=== PATIENT | female | born 1990 | race American Indian/Alaskan Native ===

== ENCOUNTER 2018-06-13 17:21 | Emergency (ER) | payer BC, OTHER ==
--- NOTE | 2018-06-13 18:18 | Emergency Department Report ---
Chief Complaint: Abdominal Pain Stated Complaint: ABD PAIN/NAUSEA Time Seen by Provider: 06/13/18 18:16 - HPI History of Present Illness: Pt presents with RLQ abdominal pain that began a week ago states she has nausea no emesis no fever (+) diarrhea (+) urinary frequency no dysuria PSHx cholecystectomy in Dec 2017 hx asthma, albuterol inhaler (+) smoker non drink no drug use MSE screening note: Focused history performed. Due to findings the following was ordered: UA, labs, urine preg ED Disposition for MSE Condition: Stable Instructions: Abdominal Pain (ED)
[2018-06-13 18:52] LABS: Basophils % (Auto) 0.5 % (0.0-1.8); Eosinophils # (Auto) 0.2 K/mm3 (0.0-0.4); Hematocrit 43.1 % (30.3-42.9); Hemoglobin 14.3 gm/dl (10.1-14.3); Lymphocytes # (Auto) 3.4 K/mm3 (1.2-5.4); Lymphocytes % (Auto) 36.1 % (13.4-35.0); Mean Corpuscular HGB Conc 33 % (30-34); Mean Corpuscular Volume 78 fl (79-97); Monocytes # (Auto) 0.7 K/mm3 (0.0-0.8); Monocytes % (Auto) 7.4 % (0.0-7.3); Platelet Count 265 K/mm3 (140-440); Red Blood Count 5.52 M/mm3 (3.65-5.03); Red Cell Distribution Width 14.1 % (13.2-15.2)
[2018-06-13 19:07] LABS: Alanine Aminotransferase 12 units/L (7-56); BUN/Creatinine Ratio 12; Blood Urea Nitrogen 7 mg/dL (7-17); Calcium 9.2 mg/dL (8.4-10.2); Hemolysis Index 18
[2018-06-13 20:10] LABS: Bilirubin,Urine NEG (Negative); Blood,Urine NEG (Negative); Color,Urine Yellow (Yellow); Mucus,Urine FEW /HPF; Protein,Urine <15 mg/dL mg/dL (Negative)
[2018-06-13 20:13] LABS: HCG Qualitative,Urine Negative (Negative); WBC,Urine < 1.0 /HPF (0.0-6.0)
[2018-06-13] MEDS ORDERED: NACL 0.9% 1000 ML 1,000 ML IV ONE (20:14)
--- NOTE | 2018-06-13 20:26 | Emergency Department Report ---
ED Abdominal Pain HPI - General Chief Complaint: Abdominal Pain Stated Complaint: ABD PAIN/NAUSEA Time Seen by Provider: 06/13/18 18:16 Source: patient Mode of arrival: Ambulatory Limitations: No Limitations - History of Present Illness Initial Comments: 28-year-old -[place] female presents to the emergency room for right lower quadrant pain after eating. Nausea no vomiting diarrhea. MD Complaint: abdominal pain -: week(s) (1) Location: RLQ Severity scale (0 -10): 9 Quality: sharp Consistency: intermittent Improves With: nothing Worsens With: nothing Associated Symptoms: nausea, diarrhea. denies: vomiting - Related Data LMP Date: 05/04/18 ED Review of Systems ROS: Stated complaint: ABD PAIN/NAUSEA Other details as noted in HPI Comment: All other systems reviewed and negative Gastrointestinal: abdominal pain, nausea ED Past Medical Hx - Surgical History Hx Appendectomy: Yes Additional Surgical History: x2 - Social History Smoking Status: Current Every Day Smoker Substance Use Type: None ED Physical Exam - General Limitations: No Limitations ED Course Vital Signs 06/13/18 18:16 Temperature 98.4 F Pulse Rate 74 Respiratory 18 Rate Blood Pressure 117/68 O2 Sat by Pulse 99 Oximetry ED Medical Decision Making - Lab Data Result diagrams: 06/13/18 18:38 06/13/18 18:38 Critical care attestation.: If time is entered above; I have spent that time in minutes in the direct care of this critically ill patient, excluding procedure time. ED Disposition Clinical Impression: Abdominal pain Disposition: DC-07 LEFT AGAINST MED ADVICE Is pt being admited?: No Does the pt Need Aspirin: No Condition: Stable Instructions: Abdominal Pain (ED) Referrals: AVA LEAL MD [Primary Care Provider] - 3-5 Days Forms: AMA Form
[2018-06-13] MEDS ORDERED: ZOFRAN ODT PO ONE (20:44)
--- NOTE | 2018-06-13 22:18 | Ultrasound Report ---
PROCEDURE: US ABDOMEN LIMITED TECHNIQUE: Ultrasound abdomen right lower quadrant HISTORY: rlq pain COMPARISONS: FINDINGS: Sonographic dilation of right lower quadrant demonstrates no blind-ending tubular structure. No abnor mal fluid collection identified. In the right upper quadrant visualized portion of liver parenchyma is unremarkable. Proximal abdomina l aorta 1.5 cm Patient is status post cholecystectomy. Common bile duct is 3.4 cm Right kidney measures 10.7 x 3.8 x 5.3 cm no evidence for hydronephrosis Visualized portions of pancreas demonstrates no focal abnormality IMPRESSION: Status post cholecystectomy No acute abnormality identified. This document is electronically signed by Harshad Pearce MD., June 13 2018 10:17:06 PM ET
[2018-06-14 19:30] VITALS: BP 117/68
== END 2018-06-13 22:43 ==
LOC: ED 17:21
DX: R10.31 Right lower quadrant pain (principal); R11.2 Nausea with vomiting, unspecified; F17.200 Nicotine dependence, unspecified, uncomplicated; Z90.89 Acquired absence of other organs
CPT/HCPCS: 36415; 76705; 80053; 81001; 81025; 83690; 85025; Q0162